=== PATIENT | male | born 1975 | race Caucasian/White ===

== ENCOUNTER 2017-06-08 11:59 | Inpatient (IN) | payer OTHER ==
[2017-06-08 12:35] VITALS: BMI 25.8
--- NOTE | 2017-06-08 15:38 | HP ---
COWS - Scale Resting Pulse: 1= [place] 81-100 Sweatin=Flushed/Facial Moisture Restless Observation: 1= Difficult to Sit Still Pupil Size: 1= Pupils >than Normal Bone or Joint Aches: 2= Severe Diffuse Aches Runny Nose/ Eye Tearin= Nasal Congestion GI Upset > 30mins: 1= Stomach Cramp Tremor Observation: 1= Tremor [place], Not Seen Yawning Observation: 0= None Anxiety or Irritability: 2=Irritable/Anxious Goose Flesh Skin: 3=Piloerection COWS Score: 15 Admission ROS [facility]HS - HPI Chief Complaint: I need help to stop using heroin/fentanyl . Allergies/Adverse Reactions: Allergies Allergy/AdvReac Type Severity Reaction Status Date / Time No Known Allergies Allergy Verified 06/08/17 15:09 History of Present Illness: 41 y/o f pt with h/o opioid dep. seeking detox. Exam Limitations: No Limitations - Ebola screening Have you traveled outside of the country in the last 21 days: No Have you had contact with anyone from an Ebola affected area: No Have you been sick,other than usual withdrawal symptoms: No Do you have a fever: No - Review of Systems Constitutional: Malaise, Weakness EENT: reports: No Symptoms Reported Respiratory: reports: No Symptoms reported Cardiac: reports: No Symptoms Reported GI: reports: Nausea, Abdominal cramping : reports: No Symptoms Reported Musculoskeletal: reports: Back Pain, Muscle Pain, Neck Pain Integumentary: reports: No Symptoms Reported Neuro: reports: Weakness Endocrine: reports: No Symptoms Reported Hematology: reports: No Symptoms Reported Psychiatric: reports: Agitated, Anxious, Depressed Other Systems: Reviewed and Negative Patient History - Patient Medical History Hx Anemia: No Hx Asthma: No Hx Chronic Obstructive Pulmonary Disease (COPD): No Hx Cancer: No Hx Cardiac Disorders: No Hx Congestive Heart Failure: No Hx Hypertension: No Hx Hypercholesterolemia: No Hx Pacemaker: No HX Cerebrovascular Accident: No Hx Seizures: No Hx Dementia: No Hx Diabetes: No Hx Gastrointestinal Disorders: No Hx Liver Disease: No Hx Genitourinary Disorders: No Hx Sexually Transmitted Disorders: No Hx Renal Disease (ESRD): No Hx Thyroid Disease: No Hx Hepatitis C: No Hx Depression: Yes Hx Suicide Attempt: Yes Hx Schizophrenia: Yes - Patient Surgical History Past Surgical History: No - PPD History Previous Implant?: Yes Documented Results: Negative w/proof Implanted On Prior [facility] Admission?: No - Reproductive History Patient is a Female of Child Bearing Age (11 -55 yrs old): No - Smoking Cessation Smoking history: Current every day smoker Have you smoked in the past 12 months: Yes Aproximately how many cigarettes per day: 20 Hx Chewing Tobacco Use: No Initiated information on smoking cessation: Yes 'Breaking Loose' booklet given: 06/08/17 - Substance & Tx. History Hx Alcohol Use: No Hx Substance Use: Yes Substance Use Type: Heroin Hx Substance Use Treatment: No - Substances Abused Heroin Route: Inhalation Frequency: Daily Amount used: 10 bags Age of first use: 21 Date of Last Use: 06/07/17 fentanyl Route: Inhalation Frequency: Daily Amount used: 2 gms Age of first use: 41 Date of Last Use: 06/06/17 Family Disease History - Family Disease History Family Disease History: Other: Mother (brain aneursym ) Admission Physical Exam [facility] - Vital Signs Vital Signs: Vital Signs - 24 hr 06/08/17 12:32 Temperature 97.0 F L Pulse Rate 87 Respiratory 20 Rate Blood Pressure 124/73 41 y/o m pt aox3 in nad unable to sit still with neck and back pain - Physical General Appearance: Yes: Appropriately Dressed, Irritable, Anxious HEENTM: Yes: EOMI, Hearing grossly Normal, Normocephalic, Normal Voice, CECIL Respiratory: Yes: Chest Non-Tender, Lungs Clear, Normal Breath Sounds, No Respiratory Distress Neck: Yes: Supple, Trachea in good position Breast: Yes: Within Normal Limits Cardiology: Yes: Regular Rhythm, Regular Rate, S1, S2 Abdominal: Yes: Normal Bowel Sounds, Non Tender, Flat, Soft, Increased Bowel Sounds Genitourinary: Yes: Within Normal Limits Back: Yes: CVA Tenderness, Muscle Spasm, Vertebral Tenderness Musculoskeletal: Yes: Back pain, Muscle Pain, Muscle weakness Extremities: Yes: Within Normal Limits 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 - Detox or Rehab [facility] Level of Care: Medically Managed Detox Regimen/Protocol: Methadone [facility] Breath Alcohol Content Breath Alcohol Content: 0 Urine Drug Screen - Results Drug Screen Negative: No Urine Drug Screen Results: THC-Marijuana, OPI-Opiates
[2017-06-08] MEDS ORDERED: NICOTINE POLACRILEX 2 MG GUM BC PRN (16:11)
[2017-06-08] MEDS ORDERED: LOPERAMIDE HCL 2 MG CAPSULE PO PRN (16:11)
[2017-06-08] MEDS ORDERED: MENTHOL/PHENOL 1 EACH UD MM PRN (16:11)
[2017-06-08] MEDS ORDERED: guaiFENesin/D-METHORPHAN HB 10 ML UNIT-DOSE CUPS PO PRN (16:11)
[2017-06-08] MEDS ORDERED: METHADONE HCL 10 MG TABLET (FOR DETOX USE ONLY) PO ONE ×2 (16:11→23:00)
[2017-06-08] MEDS ORDERED: P-EPHED 60MG/TRIPROLIDI 2.5MG TABLET PO PRN (16:11)
[2017-06-08] MEDS ORDERED: MAG HYDROX/AL HYDROX/SIMETH 30 ML UNIT-DOSE CUP PO PRN (16:11)
[2017-06-08] MEDS ORDERED: MAGNESIUM HYDROX 2400MG/30ML ORAL SUSPENSION 30 ML CUP PO PRN (16:11)
[2017-06-08] MEDS ORDERED: MAGNESIUM CITRATE 300 ML BOTTLE PO PRN (16:11)
[2017-06-08] MEDS: diazePAM 5 MG TABLET PO PRN ×2 (18:43→22:04)
[2017-06-08] MEDS ORDERED: cloNIDine HCL 0.1 MG TABLET PO ONE (20:25)
[2017-06-08] MEDS ORDERED: CYCLOBENZAPRINE HCL 10 MG TABLET (FP) PO ONE (20:26)
[2017-06-08] MEDS: IBUPROFEN 400 MG TABLET (FP) PO PRN (20:30)
--- NOTE | 2017-06-08 20:30 | PN ---
BHS Progress Note Note: WITHDRAWAL SYMPTOM BP 153/102 CLONIDINE 0.1 MG PO NOW THEN BID TO HOLD IF SYSTOLIC BP BELOW 100 FLEXERIL 10 MGS PO NOW THEN TID PRN CONTINUE DETOX
[2017-06-08 21:35] LABS: URINE APPEARANCE SLCLOUDY; URINE BILIRUBIN NEGATIVE (NEGATIVE); URINE BLOOD 1+ (NEGATIVE); URINE COLOR YELLOW; URINE GLUCOSE (UA) NEGATIVE (NEGATIVE); URINE KETONE NEGATIVE (NEGATIVE); URINE LEUK ESTERASE NEGATIVE (NEGATIVE); URINE NITRITE NEGATIVE (NEGATIVE); URINE UROBILINOGEN NEGATIVE mg/dL (0.2-1.0)
[2017-06-08 21:37] LABS: URINE PROTEIN 1+ (NEGATIVE)
[2017-06-08 21:39] LABS: URINE MUCUS FEW; URINE RBC 50 /hpf (0-3); URINE WBC 5 /hpf (3-5)
[2017-06-08] MEDS: cloNIDine HCL 0.1 MG TABLET PO SCH (22:03)
[2017-06-08] MEDS: THIAMINE HCL 100 MG TABLET (FP) PO SCH (22:05)
[2017-06-08] MEDS: diphenhydrAMINE HCL 50 MG CAPSULE PO PRN (22:06)
[2017-06-09] MEDS: CYCLOBENZAPRINE HCL 10 MG TABLET (FP) PO PRN ×3 (05:08→20:16)
[2017-06-09] MEDS: IBUPROFEN 400 MG TABLET (FP) PO PRN ×3 (05:12→22:06)
[2017-06-09] MEDS: diazePAM 5 MG TABLET PO PRN ×4 (05:28→20:16)
[2017-06-09] MEDS ORDERED: cloNIDine HCL 0.1 MG TABLET PO ONE (05:55)
[2017-06-09] MEDS ORDERED: hydrOXYzine PAMOATE 50 MG CAPSULE (FP) PO ONE (05:56)
[2017-06-09] MEDS: hydrOXYzine PAMOATE 25 MG CAPSULE (FP) PO PRN ×2 (06:14→17:41)
[2017-06-09] MEDS ORDERED: METHADONE HCL 10 MG TABLET (FOR DETOX USE ONLY) PO ONE (10:00)
[2017-06-09] MEDS: PRENATAL VITAMINS W/ FOLIC ACID TABLET (FP) PO SCH (10:31)
[2017-06-09] MEDS: ACETAMINOPHEN 325 MG TABLET (FP) PO PRN ×2 (10:32→17:41)
[2017-06-09] MEDS: cloNIDine HCL 0.1 MG TABLET PO SCH ×2 (10:33→22:05)
[2017-06-09] MEDS: NICOTINE 14 MG/24 HOURS TOPICAL PATCH TD SCH (10:33)
[2017-06-09 10:37] LABS: MCH 30.8 pg (25.7-33.7); MEAN CELL VOLUME 93.3 fl (80-96); MEAN PLT VOLUME 7.9 fl (7.5-11.1); PLATELET COUNT 285 K/MM3 (134-434); RDW 13.4 % (11.9-15.9); WHITE BLOOD COUNT 13.4 K/mm3 (4.0-10.0)
[2017-06-09 10:51] LABS: ALBUMIN 3.6 g/dl (3.4-5.0); ANION GAP 8 (8-16); CALCIUM 9.3 mg/dL (8.5-10.1); CO2 28 mmol/L (21-32); GLUCOSE,RANDOM 79 mg/dL (74-106)
[2017-06-09 10:56] LABS: ALK PHOS 65 U/L (45-117); BILIRUBIN,TOTAL 0.5 mg/dL (0.2-1.0); CREATININE 0.8 mg/dL (0.7-1.3); SGOT/AST 8 U/L (15-37); SGPT/ALT 18 U/L (12-78); TOT PROT 6.7 g/dl (6.4-8.2)
--- NOTE | 2017-06-09 14:34 | CONSULT ---
[facility] Psychiatric Consult - Data Date of interview: 06/09/17 Admission source: [facility] Identifying data: First admission to [facility] for this 41 y/o male seeking detox treatment on for heroin and fentanyl dependence (tox screen is also positive for marihuana).Patient is single,a father of four, domiciled,unemployed and supported on SSI benefits. Substance Abuse History: Confirmed by patient.Mr Lujan added sporadic use of marijuana. Smoking Cessation. Smoking history: Current every day smoker. Have you smoked in the past 12 months: Yes. Aproximately how many cigarettes per day: 20. Hx Chewing Tobacco Use: No. Initiated information on smoking cessation: Yes. 'Breaking Loose' booklet given: 06/08/17. - Substance & Tx. History. Hx Alcohol Use: No. Hx Substance Use: Yes. Substance Use Type: Heroin. Hx Substance Use Treatment: No. - Substances Abused. Heroin. Route: Inhalation. Frequency: Daily. Amount used: 10 bags. Age of first use: 21. Date of Last Use: 06/07/17. fentanyl. Route: Inhalation. Frequency: Daily. Amount used: 2 gms. Age of first use: 41. Date of Last Use: 06/06/17 Medical History: Patient endorses good general health. Psychiatric History: Remote history of psychiatric hospitalizations (years ago in [place]).Diagnosed with Anxiety Disorder.Mr Lujan is currently in O[facility] care at [facility].Questionable historian.Patient denies history of suicide attempts. Physical/Sexual Abuse/Trauma History: Patient denies. Additional Comment: Urine Drug Screen Results: THC-Marijuana, OPI-Opiates.Noted. Mental Status Exam - Mental Status Exam Alert and Oriented to: Time, Place, Person Cognitive Function: Good Patient Appearance: Well Groomed Mood: Hopeful, Euthymic Affect: Appropriate, Normal Range Patient Behavior: Fatigued, Appropriate, Cooperative Speech Pattern: Clear Voice Loudness: Normal Thought Process: Goal Oriented Thought Disorder: Not Present Hallucinations: Denies Suicidal Ideation: Denies Homicidal Ideation: Denies Insight/Judgement: Fair Sleep: Poorly, Difficulty falling asleep Appetite: Good Muscle strength/Tone: Normal Gait/Station: Normal Psychiatric Findings - Problem List ([place] 1, 2,3) (1) Opioid dependence Current Visit: Yes Status: Acute (2) Marihuana abuse Current Visit: Yes Status: Acute (3) Nicotine dependence Current Visit: Yes Status: Acute (4) Substance induced mood disorder Current Visit: Yes Status: Acute - Initial Treatment Plan Initial Treatment Plan: Psychoeducation.Detoxification.Observation.
--- NOTE | 2017-06-09 15:43 | PN ---
S COWS - Scale Resting Pulse: 1= [place] 81-100 Sweatin= Chills/Flushing Restless Observation: 1= Difficult to Sit Still Pupil Size: 0= Normal to Room Light Bone or Joint Aches: 2= Severe Diffuse Aches Runny Nose/ Eye Tearin= Runny Nose/Eyes GI Upset > 30mins: 2= Nausea/Diarrhea Tremor Observation of Outstretched Hands: 2= Slight Tremor Visible Yawning Observation: 1= 1-2x During Session Anxiety or Irritability: 2=Irritable/Anxious Goose Flesh Skin: 3=Piloerection COWS Score: 17 BHS Progress Note (SOAP) Subjective: Interrupted sleep, Body aches, Sweating, Tremors. Objective: PT. A & O X 3. NO ACUTE DISTRESS. PT. DENIES CHEST PAIN. 06/09/17 15:44 Vital Signs Temperature 97.0 F L 06/09/17 09:56 Pulse Rate 95 H 06/09/17 09:56 Respiratory Rate 18 06/09/17 09:56 Blood Pressure 146/86 06/09/17 09:56 O2 Sat by Pulse Oximetry (%) Laboratory Tests 06/08/17 06/09/17 06/09/17 21:00 07:50 07:50 WBC 13.4 H RBC 4.60 Hgb 14.2 Hct 43.0 MCV 93.3 MCH 30.8 MCHC 33.0 RDW 13.4 Plt Count 285 MPV 7.9 Sodium 139 Potassium 4.0 Chloride 103 Carbon Dioxide 28 Anion Gap 8 BUN 12 Creatinine 0.8 Creat Clearance w eGFR > 60 Random Glucose 79 Calcium 9.3 Total Bilirubin 0.5 AST 8 L ALT 18 Alkaline Phosphatase 65 Total Protein 6.7 Albumin 3.6 Urine Color Yellow Urine Appearance Slcloudy Urine pH 5.0 Ur Specific [place] 1.015 Urine Protein 1+ H Urine Glucose (UA) Negative Urine Ketones Negative Urine Blood 1+ H Urine Nitrite Negative Urine Bilirubin Negative Urine Urobilinogen Negative Ur Leukocyte Esterase Negative Urine RBC 50 Urine WBC 5 Urine Mucus Few RPR Titer 06/09/17 07:50 WBC RBC Hgb Hct MCV MCH MCHC RDW Plt Count MPV Sodium Potassium Chloride Carbon Dioxide Anion Gap BUN Creatinine Creat Clearance w eGFR Random Glucose Calcium Total Bilirubin AST ALT Alkaline Phosphatase Total Protein Albumin Urine Color Urine Appearance Urine pH Ur Specific [place] Urine Protein Urine Glucose (UA) Urine Ketones Urine Blood Urine Nitrite Urine Bilirubin Urine Urobilinogen Ur Leukocyte Esterase Urine RBC Urine WBC Urine Mucus RPR Titer Nonreactive LABS NOTED. Assessment: 06/09/17 15:45 WITHDRAWAL SYMPTOMS. Plan: CONTINUE DETOX. REPEAT UA FOR ADMISSION UA ABNORMALITIES.
[2017-06-09] MEDS: LIDOCAINE 5% TOPICAL PATCH TP SCH (18:32)
[2017-06-09] MEDS: THIAMINE HCL 100 MG TABLET (FP) PO SCH (22:05)
[2017-06-09] MEDS: LIDOCAINE PATCH REMOVAL MC SCH (22:06)
[2017-06-09] MEDS: diphenhydrAMINE HCL 50 MG CAPSULE PO PRN (22:06)
[2017-06-10] MEDS: diazePAM 5 MG TABLET PO PRN ×5 (02:04→21:36)
[2017-06-10] MEDS: ACETAMINOPHEN 325 MG TABLET (FP) PO PRN ×2 (02:05→10:07)
[2017-06-10] MEDS: IBUPROFEN 400 MG TABLET (FP) PO PRN ×3 (05:24→19:24)
[2017-06-10] MEDS: CYCLOBENZAPRINE HCL 10 MG TABLET (FP) PO PRN ×3 (05:25→20:32)
[2017-06-10] MEDS ORDERED: METHADONE HCL 5 MG TABLET (FOR DETOX USE ONLY) PO ONE (10:00)
[2017-06-10] MEDS: PRENATAL VITAMINS W/ FOLIC ACID TABLET (FP) PO SCH (10:03)
[2017-06-10] MEDS: cloNIDine HCL 0.1 MG TABLET PO SCH ×2 (10:03→22:47)
[2017-06-10] MEDS: NICOTINE 14 MG/24 HOURS TOPICAL PATCH TD SCH (10:04)
[2017-06-10] MEDS: LIDOCAINE 5% TOPICAL PATCH TP SCH (10:04)
--- NOTE | 2017-06-10 17:07 | PN ---
S COWS - Scale Resting Pulse: 1= [place] 81-100 Sweatin=Flushed/Facial Moisture Restless Observation: 3= Extraneous Movement Pupil Size: 1= Pupils >than Normal Bone or Joint Aches: 2= Severe Diffuse Aches Runny Nose/ Eye Tearin= Runny Nose/Eyes GI Upset > 30mins: 2= Nausea/Diarrhea Tremor Observation of Outstretched Hands: 2= Slight Tremor Visible Yawning Observation: 1= 1-2x During Session Anxiety or Irritability: 2=Irritable/Anxious Goose Flesh Skin: 0=Smooth Skin COWS Score: 18 BHS Progress Note (SOAP) Subjective: Sweating, anxious, restless, chills, tremor, interrupted sleep, right shoulder pain (severe, states he gets this every time he goes through withdrawal) Objective: 06/10/17 17:05 Last Vital Signs Temp Pulse Resp BP Pulse Ox 97.1 F L 89 16 133/80 06/10/17 09:26 06/10/17 13:18 06/10/17 13:18 06/10/17 13:18 Laboratory Tests 06/08/17 06/09/17 06/09/17 21:00 07:50 07:50 WBC 13.4 H RBC 4.60 Hgb 14.2 Hct 43.0 MCV 93.3 MCH 30.8 MCHC 33.0 RDW 13.4 Plt Count 285 MPV 7.9 Sodium 139 Potassium 4.0 Chloride 103 Carbon Dioxide 28 Anion Gap 8 BUN 12 Creatinine 0.8 Creat Clearance w eGFR > 60 Random Glucose 79 Calcium 9.3 Total Bilirubin 0.5 AST 8 L ALT 18 Alkaline Phosphatase 65 Total Protein 6.7 Albumin 3.6 Urine Color Yellow Urine Appearance Slcloudy Urine pH 5.0 Ur Specific [place] 1.015 Urine Protein 1+ H Urine Glucose (UA) Negative Urine Ketones Negative Urine Blood 1+ H Urine Nitrite Negative Urine Bilirubin Negative Urine Urobilinogen Negative Ur Leukocyte Esterase Negative Urine RBC 50 Urine WBC 5 Urine Mucus Few RPR Titer 06/09/17 07:50 WBC RBC Hgb Hct MCV MCH MCHC RDW Plt Count MPV Sodium Potassium Chloride Carbon Dioxide Anion Gap BUN Creatinine Creat Clearance w eGFR Random Glucose Calcium Total Bilirubin AST ALT Alkaline Phosphatase Total Protein Albumin Urine Color Urine Appearance Urine pH Ur Specific [place] Urine Protein Urine Glucose (UA) Urine Ketones Urine Blood Urine Nitrite Urine Bilirubin Urine Urobilinogen Ur Leukocyte Esterase Urine RBC Urine WBC Urine Mucus RPR Titer Nonreactive Labs noted: wbc 13.4, abnormal UA Assessment: 06/10/17 17:06 Withdrawal symptoms Right shoulder pain, persistent Noted with leukocytosis and abnormal UA Plan: Continue detox Right shoulder pain: xray right shoulder in AM, continue pain management, heat pack prn Leukocytosis: repeat cbc in AM Abnormal UA: encouraged to drink lots of water, repeat UA in AM
[2017-06-10] MEDS: hydrOXYzine PAMOATE 25 MG CAPSULE (FP) PO PRN (19:23)
[2017-06-10 20:51] LABS: URINE APPEARANCE CLEAR; URINE BILIRUBIN NEGATIVE (NEGATIVE); URINE BLOOD 1+ (NEGATIVE); URINE COLOR YELLOW; URINE GLUCOSE (UA) NEGATIVE (NEGATIVE); URINE KETONE NEGATIVE (NEGATIVE); URINE LEUK ESTERASE NEGATIVE (NEGATIVE); URINE NITRITE NEGATIVE (NEGATIVE); URINE PROTEIN NEGATIVE (NEGATIVE); URINE UROBILINOGEN NEGATIVE mg/dL (0.2-1.0)
[2017-06-10 21:02] LABS: URINE MUCUS RARE; URINE RBC 21 /hpf (0-3); URINE WBC 1 /hpf (3-5); YEAST RARE
[2017-06-10] MEDS ORDERED: KETOROLAC TROMETHAMINE 30 MG/1 ML VIAL IM ONE (21:50)
[2017-06-10 22:16] VITALS: BP 135/98; PULSE 100; TEMP 97.9
--- NOTE | 2017-06-10 22:30 | EKG ---
Test Reason : Blood Pressure : / mmHG Vent. Rate : 078 BPM Atrial Rate : 078 BPM P-R Int : 150 ms QRS Dur : 094 ms QT Int : 372 ms P-R-T Axes : 051 065 042 degrees QTc Int : 424 ms NORMAL SINUS RHYTHM NORMAL ECG NO PREVIOUS ECGS AVAILABLE Confirmed by THEO PARIKH MD ([id number]) on 06/10/2017 10:30:31 PM Referred By: Cash Garcia Confirmed By:THEO PARIKH MD
[2017-06-10] MEDS: diphenhydrAMINE HCL 50 MG CAPSULE PO PRN (22:47)
[2017-06-10] MEDS: THIAMINE HCL 100 MG TABLET (FP) PO SCH (22:48)
[2017-06-10] MEDS: LIDOCAINE PATCH REMOVAL MC SCH (22:48)
[2017-06-11] MEDS ORDERED: IBUPROFEN 600 MG TABLET (FP) PO PRN (00:23)
[2017-06-11] MEDS: diphenhydrAMINE HCL 50 MG CAPSULE PO PRN (01:33)
[2017-06-11] MEDS: diazePAM 5 MG TABLET PO PRN (01:34)
[2017-06-11] MEDS: ACETAMINOPHEN 325 MG TABLET (FP) PO PRN (03:24)
[2017-06-11] MEDS: hydrOXYzine PAMOATE 25 MG CAPSULE (FP) PO PRN (03:25)
[2017-06-11] MEDS: CYCLOBENZAPRINE HCL 10 MG TABLET (FP) PO PRN (03:25)
--- NOTE | 2017-06-11 04:20 | PN ---
[facility] Progress Note Note: MD'S NOTE: INFORMED AT ABOUT 4:10AM THAT THE PT. WANTS TO SIGN OUT AMA FOR PERSONAL REASONS EARLIER HE WAS CONVINCED (AFTER TALKING FACE TO FACE) TO STAY BUT NOW HE WANTS TO SIGN OUT. SO, THE PT. SIGNED OUT AMA AND ABOUT TO LEAVE THE FACILITY SOON. RECOMMENDED TO F/U OUT PT. PROGRAMS AND PMD. PROVIDER: GRAHAM CRUZ MD
[2017-06-11] MEDS ORDERED: METHADONE HCL 5 MG TABLET (FOR DETOX USE ONLY) PO ONE (10:00)
[2017-06-12] MEDS ORDERED: METHADONE HCL 10 MG TABLET (FOR DETOX USE ONLY) PO ONE (10:00)
[2017-06-13] MEDS ORDERED: METHADONE HCL 5 MG TABLET (FOR DETOX USE ONLY) PO ONE (06:00)
== END 2017-06-11 04:43 | disposition left against medical advice (07) | DRG 770 ==
LOC: YASAS 11:59 → Y3N 16:32
PROVIDERS: ADMIT Internal Medicine Addiction Medicine; ATTEND Internal Medicine Addiction Medicine
PROC: HZ2ZZZZ Detoxification Services for Substance Abuse Treatment (ICD-10-PCS; principal; 2017-06-08)
DX: F11.23 Opioid dependence with withdrawal (principal); F12.20 Cannabis dependence, uncomplicated; F17.210 Nicotine dependence, cigarettes, uncomplicated; F19.24 Other psychoactive substance dependence with psychoactive substance-induced mood disorder; D72.829 Elevated white blood cell count, unspecified; R82.90 Unspecified abnormal findings in urine; M25.511 Pain in right shoulder; M54.5 Low back pain
CPT/HCPCS: 36415; 80053; 81003; 81015; 85027; 86593; 93005; 93010